=== PATIENT | male | born 1970 | race Caucasian/White ===

== ENCOUNTER 2018-01-18 01:40 | Emergency (ER) | END 2018-01-18 03:34 | disposition home or self-care (01) ==

== ENCOUNTER 2019-01-16 04:41 | Emergency (ER) | payer OTHER ==
[~2019-01-16] VITALS: Ht 180.3 cm; Wt 80.2 kg
[~2019-01-16 04:41] MED LIST: BEN25 PO; CLOT30CR24 TOP; ELIM TOP; FAMO-96 PO; HYDR-843 PO; IVER3TAB2 PO; LORA10TA3 PO
[2019-01-16 04:45] VITALS: Ht 180.3 cm; Wt 80.2 kg
[2019-01-16] MEDS ORDERED: DIPHENHYDRAMINE 25 MG CAP PO ONE (05:30)
[2019-01-16] MEDS ORDERED: NICARDipine HCL 30 MG CAPSULE PO ONE (05:30)
[2019-01-16 06:07] VITALS: BP 140/83; PULSE 86; RESP 20
== END 2019-01-16 06:23 | disposition home or self-care (01) ==
LOC: FTE 04:41
DX: B86 Scabies (principal); F17.210 Nicotine dependence, cigarettes, uncomplicated
CPT/HCPCS: Z7502; Z7610; 99283

== ENCOUNTER 2019-01-17 21:27 | Emergency (ER) | payer OTHER ==
[~2019-01-17] VITALS: Ht 180.3 cm; Wt 82.9 kg
[2019-01-17 21:30] VITALS: BP 132/80; PULSE 83; RESP 20; Ht 180.3 cm; Wt 82.9 kg
== END 2019-01-17 22:00 | disposition home or self-care (01) ==
LOC: E/R 21:27
DX: Z76.0 Encounter for issue of repeat prescription (principal)
CPT/HCPCS: 99281